=== PATIENT | male | born 1965 | race Caucasian/White ===

== ENCOUNTER 2020-02-27 19:13 | Day surgery (SDC) | payer BC ==
[~2020-02-27] VITALS: Ht 180.3 cm; Wt 77.8 kg
[2020-02-27 19:43] LABS: BASO # 0.1 (0.0-0.2); BASO % 0.3 % (0.0-2.0); EOS # 0.3 (0.0-0.7); EOS % 1.7 % (0-4.0); GRAN # 13.2 (1.4-6.5); GRAN % 83.7 % (42.2-75.2); HEMATOCRIT 47.2 % (42.0-52.0); HEMOGLOBIN 16.2 g/dl (13.5-18.0); LYMPH # 1.1 (1.2-3.4); LYMPH % 6.8 % (20.0-51.0); MEAN CELL VOLUME 86 fl (80.0-100.0); MEAN CORPUSCULAR HEMOGLOBIN 30 pg (27.0-31.0); MEAN CORPUSCULAR HGB CONC 34 g/dl (33.0-37.0); MEAN PLATELET VOLUME 9.6 fl (7.4-10.4); MONO # 1.1 (0.1-0.6); MONO % 7.2 % (1.7-9.3); PLATELET COUNT 206 K/mm3 (130-400); REDCELL DISTRIBUTION WIDTH-CV 12.8 % (11.5-14.5)
[2020-02-27 20:51] LABS: ALANINE AMINOTRANSFERASE 24 U/L (4-49); ALBUMIN 4.6 gm/dL (3.5-5.0); ALKALINE PHOSPHATASE 105 U/L (50-136); ANION GAP 9 mmol/L (7-16); AST,SGOT 26 U/L (15-37); BILIRUBIN,TOTAL 0.7 mg/dL (0.0-1.0); BLOOD UREA NITROGEN 10 mg/dL (9-20); CALCIUM 9.4 mg/dL (8.4-10.2); CARBON DIOXIDE 25 mmol/L (22-30); CHLORIDE 101 mmol/L (98-107); CREATININE, serum 0.98 (0.66-1.25); GLUCOSE 117 mg/dL (74-106); LIPASE 106 U/L (23-300); POTASSIUM 4.1 mmol/L (3.4-5.0); SODIUM 134 mmol/L (137-145); TOTAL PROTEIN 7.7 gm/dL (6.4-8.2)
[2020-02-27 20:54] LABS: C-REACTIVE PROTEIN < 0.5 mg/dL (0.0-0.9)
[2020-02-27 21:14] LABS: TROPONIN-I < 0.012 ng/mL (0.000-0.035)
[2020-02-27 22:07] LABS: COLLECTION METHOD CLEAN CATCH
[2020-02-27 22:18] LABS: MUCOUS Present /lpf; PH 6 (5-8); SQUAMOUS EPITHELIAL None Seen /hpf; URINE APPEARANCE Clear; URINE BACTERIA None Seen /hpf; URINE BILIRUBIN Negative (NEGATIVE); URINE BLOOD 3+ (NEGATIVE); URINE COLOR Yellow; URINE GLUCOSE Negative (NEGATIVE); URINE KETONE Negative (NEGATIVE); URINE LEUKOCYTE ESTERASE Negative (NEGATIVE); URINE NITRATE Negative (NEGATIVE); URINE PROTEIN(semi-quant) Negative (NEGATIVE); URINE RBC >50 /hpf; URINE UROBILINOGEN Negative (NEGATIVE)
[2020-02-27 23:55] VITALS: BP 138/79; PULSE 82; TEMP 97.8
[2020-02-27 23:59] VITALS: BP 138/79; PULSE 78; TEMP 97.8
[2020-02-28] VITALS (9 sets, daily range): BP systolic 120–149; BP diastolic 63–84; PULSE 74–88; TEMP 98–98.5
--- NOTE | 2020-02-28 08:00 | NUR ---
Patient in bed resting. Alert and oriented x3. Assessment complete. ENV[employer]MENT[employer]ICER infusing per orders. Denies pain at this time. Denies further needs at this time.
--- NOTE | 2020-02-28 08:20 | NUR ---
Dr. Nesbitt in to see patient
--- NOTE | 2020-02-28 09:45 | NUR ---
MADONNA met with the patient to complete initial intake. The patient lives in [place] with his sister, Whit. The patient denies DME use and is independent with ADLs. The patient does not have a PCP but was open to setting an appointment with [facility] in [place]. The patient receives medications from [facility]. The patient does not have advanced directives. The patient states he is not and has not children that he knows of. The patient has a sister Whit and a brother named Joseph who lives in [place]. The patient plans to return home at discharge with his girlfriend Melisa providing transportation. MADONNA contacted [facility] in . The patient has an appointment at 03/01 at 1300. MADONNA provided registration packet to the patient. There are no additional needs at this time. Whit Catherine [phone]
--- NOTE | 2020-02-28 15:15 | NUR ---
Patient down to OR
--- NOTE | 2020-02-28 19:08 | NUR ---
Patient has done well since up from OR. Alert and oriented x 3. Has been up to restroom, voiding without difficulty. Tolerating general diet without difficulty. Post op VSS. Discharge education provided to patient. Educated on new medications and medication safety. Educated on stent and follow up appointment. All questions answered. INT to right AC discontinued, catheter tip intact. Denies further needs at this time. Patient ambulated out with surgical staff.
== END 2020-02-28 19:10 | disposition home or self-care (01) ==
LOC: COL.ER 19:13 → SDCO 22:22 → SURG 22:22 → COL.ER 22:22 → SURG 22:22 → SDCO 02-28 19:10
PROVIDERS: Nurse Practitioner
DX: N20.1 Calculus of ureter (principal); F17.210 Nicotine dependence, cigarettes, uncomplicated
CPT/HCPCS: C1769; C1894; C2617; G0378; J0690; J0696; J1100; J1170; J1885; J2270; J2405; J2704; J3010; J7030; Q9967

== ENCOUNTER 2022-06-23 15:42 | Emergency (ER) | payer BC ==
[~2022-06-23] VITALS: Ht 177.8 cm; Wt 75.0 kg
[2022-06-23 15:47] VITALS: TEMP 97.6
[2022-06-23 16:01] LABS: BASO # 0.1 K/mm3 (0.0-0.2); BASO % 0.7 % (0.0-2.0); EOS # 0.7 K/mm3 (0.0-0.7); EOS % 6.7 % (0.0-4.0); GRAN # 6.6 K/mm3 (1.4-6.5); GRAN % 67.7 % (42.2-75.2); HEMATOCRIT 47.1 % (42.0-52.0); HEMOGLOBIN 16.4 g/dl (13.5-18.0); LYMPH # 1.8 K/mm3 (1.2-3.4); MEAN CELL VOLUME 85 fl (80.0-100.0); MEAN CORPUSCULAR HEMOGLOBIN 30 pg (27-31); MEAN CORPUSCULAR HGB CONC 35 g/dl (33.0-37.0); MEAN PLATELET VOLUME 9.8 fl (7.4-10.4); MONO # 0.7 K/mm3 (0.1-0.6); MONO % 6.7 % (1.7-9.3); PLATELET COUNT 201 K/mm3 (130-400); RED BLOOD COUNT 5.54 M/mm3 (4.20-5.60); REDCELL DISTRIBUTION WIDTH-CV 12.3 % (11.5-14.5)
[2022-06-23 16:23] LABS: ALBUMIN 4.2 gm/dL (3.5-5.0); BILIRUBIN,TOTAL 0.6 mg/dL (0.2-1.2); CALCIUM 9.6 mg/dL (8.4-10.2); CREATININE, serum 1.01 mg/dL (0.72-1.25); TOTAL PROTEIN 7.3 gm/dL (6.2-8.1)
[2022-06-23 16:29] LABS: TROPONIN-I 0.011 ng/mL (0.00-0.033)
[2022-06-23] MEDS ORDERED: NORVASC 5MG5 MG/TAB PO (17:31)
[2022-06-23 18:01] VITALS: BP 164/105; PULSE 97
== END 2022-06-23 18:01 | disposition home or self-care (01) ==
LOC: COL.ER 15:42
PROVIDERS: Emergency Medicine
DX: I10 Essential (primary) hypertension (principal); F17.200 Nicotine dependence, unspecified, uncomplicated